=== PATIENT | male | born 1950 | race American Indian/Alaskan Native ===

== ENCOUNTER 2018-12-20 11:58 | Emergency (ER) | payer SELFPAY ==
[2018-12-20 12:06] VITALS: BP 127/61
--- NOTE | 2018-12-20 12:13 | Emergency Department Report ---
Blank Doc - Documentation Documentation: 68-year-old male that presents with left flank pain. Denies any urinary sympt oms. This initial assessment/diagnostic orders/clinical plan/treatment(s) is/are subject to change based on patient's health status, clinical progression and re- assessment by fellow clinical providers in the ED. Further treatment and workup at subsequent clinical providers discretion. Patient/guardians urged not to elope from the ED as their condition may be serious if not clinically assessed a nd managed. Initial orders include: 1- Patient sent to [facility] for further evaluation and treatment 2- UA
--- NOTE | 2018-12-20 12:51 | Emergency Department Report ---
ED Back Pain/Injury HPI - General Chief Complaint: Abdominal Pain Stated Complaint: KIDNEY STONE PAIN Time Seen by Provider: 12/20/18 12:12 Source: patient Limitations: No Limitations - History of Present Illness Initial Comments: This is a 68-year-old -[place] male who presents to the emergency room with low back pain for one year. Patient reports pain improves after standing or walking. He reports pain is worse when he wakes up in the morning and after sitting for long periods of time. Denies radiating pain, urinary frequency, recent injury, fall, numbness or tingling, change in urinary or bowel pattern. MD Complaint: back pain Onset/Timin -: year(s) Similar Symptoms Previously: No Place: home Radiation: none Severity: moderate Severity scale (0 -10): 6 Quality: aching Consistency: intermittent Improves With: walking Worsens With: supine, sitting upright Context: unknown Associated Symptoms: denies: numbness, difficulty urinating, incontinence, fever/chills - Related Data Allergies Allergy/AdvReac Type Severity Reaction Status Date / Time No Known Allergies Allergy Verified 12/20/18 12:01 ED Review of Systems ROS: Stated complaint: KIDNEY STONE PAIN Other details as noted in HPI Constitutional: denies: chills, fever Respiratory: denies: cough, shortness of breath, wheezing Cardiovascular: denies: chest pain, palpitations Gastrointestinal: denies: abdominal pain, nausea, diarrhea Musculoskeletal: back pain. denies: joint swelling, arthralgia Skin: denies: rash, lesions Neurological: denies: headache, weakness, paresthesias Psychiatric: denies: anxiety, depression ED Back Pain Physical Exam - Exam General: Vital signs noted. No distress. Alert and acting appropriately. Back/Abdomen: Yes Sacroiliac Tenderness (movement bilaterally), No Abdominal Tenderness, No Perithoracic Tenderness, No Perilumbar Tenderness, No Flank Tenderness, No Straight Leg Raise Pain Neuro: Yes Normal Sensation, Yes Normal DTR's, Yes Normal Gait, No Motor Weakness ED Course Vital Signs 12/20/18 12/20/18 12:04 12:44 Temperature 97.9 F Pulse Rate 58 L Respiratory 18 16 Rate Blood Pressure 127/61 O2 Sat by Pulse 99 Oximetry ED Medical Decision Making - Radiology Data Radiology results: report reviewed LUMBOSACRAL SPINE, 3 VIEWS INDICATION: low back pain. Right flank pain COMPARISON: None. IMPRESSION: Mild osteopenia. There is straightening of the normal lumbar lordosis. There is normal alignment otherwise. Subtle superior endplate deformity is suspected at L2 level, age indeterminate. Moderate to severe degenerative disc disease with facet arthropathy is identified at L3-4, L4-5 and L5-S1. The sacrum is grossly intact. Minimal osteoarthritic changes are noted at the SI joints. - Medical Decision Making Patient was examined by me. Patient is nontoxic appearing and stable. Vitals are normal. Obtained x-ray of L-spine with the following findings Mild osteopenia. There is straightening of the normal lumbar lordosis. There is normal alignment otherwise. Subtle superior endplate deformity is suspected at L2 level, age indeterminate. Moderate to severe degenerative disc disease with facet arthropathy is identified at L3-4, L4-5 and L5-S1. The sacrum is grossly intact. Minimal osteoarthritic changes are noted at the SI joints. Patient informed of results. Instructed to take Tylenol or ibuprofen for pain. Follow up with PCP or return to the ER with worsening symptoms. Patient discharged home in stable condition. Critical care attestation.: If time is entered above; I have spent that time in minutes in the direct care of this critically ill patient, excluding procedure time. 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 Take Tylenol, ibuprofen, or naproxen pain medication every 6-8 hours as needed for pain. Follow up with Primary Care Provider in 2-3 days. Referrals: [facility] [Outside] - 3-5 Days EMELY MOTLEY DO [Staff Physician] - 3-5 Days Time of Disposition: 14:16
[2018-12-20 13:05] LABS: Bacteria,Urine 1+ /HPF (Negative); WBC,Urine < 1.0 /HPF (0.0-6.0)
[2018-12-20 13:14] LABS: Bilirubin,Urine NEG (Negative); Blood,Urine NEG (Negative); Color,Urine Straw (Yellow); Hyaline Casts,Urine 1 /LPF; Protein,Urine <15 mg/dL mg/dL (Negative); Urobilinogen,Urine < 2.0 mg/dL (<2.0)
--- NOTE | 2018-12-20 13:45 | XRay Report ---
LUMBOSACRAL SPINE, 3 VIEWS INDICATION: low back pain. Right flank pain COMPARISON: None. IMPRESSION: Mild osteopenia. There is straightening of the normal lumbar lordosis. There is normal a lignment otherwise. Subtle superior endplate deformity is suspected at L2 level, age indeterminate. Moderate to severe degenerative disc disease with facet arthropathy is identified at L3-4, L4-5 and L 5-S1. The sacrum is grossly intact. Minimal osteoarthritic changes are noted at the SI joints. Signer Name: Luis Parra Jr, MD Signed: 12/20/2018 1:41 PM Workstation Name: [id number]
== END 2018-12-20 14:28 | disposition home or self-care (01) ==
LOC: ED 11:58
DX: M47.27 Other spondylosis with radiculopathy, lumbosacral region (principal)
CPT/HCPCS: 72100; 81001; 87086; 99283